=== PATIENT | male | born 1950 | race Caucasian/White ===

== ENCOUNTER 2016-12-28 22:32 | Emergency (ER) | payer BC, OTHER ==
[2016-12-28 22:44] VITALS: BP 142/92
[2016-12-28] MEDS ORDERED: Oxymetazoline 0.05% Nasal Spray 15 ML Bottle NAS ONE (23:12)
--- NOTE | 2016-12-29 00:40 | EDM.PDOC ---
ED HPI GENERAL MEDICAL PROBLEM - General Chief Complaint: ENT Problem Stated Complaint: NOSE BLEED Time Seen by Provider: 12/28/16 23:00 Source of Information: Reports: Patient History Limitations: Reports: No Limitations - History of Present Illness INITIAL COMMENTS - FREE TEXT/NARRATIVE: The patient developed a nose bleed from the right nostril at about 9 tonight. He has had nose bleeds in he past. He has a history of HTN but his blood pressure is under control. He has had no fever, cough, congestion or runny nose. He is not on any blood thinners. Onset: Sudden Duration: Hour(s): Severity: Mild Improves with: Reports: None Worsens with: Reports: None Associated Symptoms: Denies: Cough, Fever/Chills, Nausea/Vomiting, Shortness of Breath - Related Data Allergies Allergy/AdvReac Type Severity Reaction Status Date / Time penicillin Allergy Rash Verified 12/28/16 23:56 Home Meds: Home Meds Ascorbic Acid [Vitamin C] 500 mg PO DAILY 05/11/15 [History] Fluticasone/Salmeterol [Advair 100-50] 1 puff INH DAILY 05/11/15 [History] Multivitamin [Multi-Vitamin Daily] 1 tab PO DAILY 05/11/15 [History] Red Yeast Rice 2,400 mg PO DAILY 05/11/15 [History] Telmisartan/Hydrochlorothiazid [Micardis Hct 40-12.5 mg Tablet] 1 tab PO DAILY 05/11/15 [History] Triamcinolone Acetonide [Nasacort AQ Lorton] 2 sprays INH DAILY 05/11/15 [History ] Aspirin 325 mg PO DAILY #60 tablet 05/12/15 [Rx] Hydrocodone/Acetaminophen [Rowley 5-325 Tablet] 1 - 2 each PO Q6H PRN #40 tablet 05/12/15 [Rx] Past Medical History HEENT History: Reports: Impaired Vision Cardiovascular History: Reports: Hypertension Respiratory History: Reports: Asthma Musculoskeletal History: Reports: Back Pain, Chronic Neurological History: Reports: Migraines - Past Surgical History HEENT Surgical History: Reports: Naso-Sinus Surgery GI Surgical History: Reports: Appendectomy Social & Family History - Family History Family Medical History: Noncontributory - Tobacco Use Smoking Status *Q: Never Smoker Second Hand Smoke Exposure: Yes - Caffeine Use Caffeine Use: Reports: Coffee - Alcohol Use Number of Drinks Per Day: 1 - Recreational Drug Use Recreational Drug Use: No Drug Use in Last 12 Months: No ED ROS ENT - Review of Systems Review Of Systems: See Below Constitutional: Reports: No Symptoms HEENT: Reports: Nosebleed Respiratory: Reports: No Symptoms Cardiovascular: Reports: No Symptoms Endocrine: Reports: No Symptoms GI/Abdominal: Reports: No Symptoms : Reports: No Symptoms Musculoskeletal: Reports: No Symptoms Skin: Reports: No Symptoms ED EXAM, ENT - Physical Exam Exam: See Below Exam Limited By: No Limitations General Appearance: Alert, No Apparent Distress Ears: Normal External Exam Nose: Active Bleeding (Moderate to the right nostril) Mouth/Throat: Normal Inspection Head: Atraumatic, Normocephalic Neck: Normal Inspection Respiratory/Chest: No Respiratory Distress ED ENT PROCEDURES - Epistaxis Procedure Indication: epistaxis Recent anticoagulants/antiplatlets: No Uncontrolled HTN: No Recent septal/nasal surgery: No Site of bleeding: right nare Clearing of clots: patient blew nose, suction Topical Meds: other (Afrin) Ice pack to area: No Chemical cautery: silver nitrate topical Complications: No Course - Vital Signs Last Recorded V/S: Last Vital Signs Temp 98.8 F 12/28/16 22:40 Pulse 90 12/28/16 22:40 Resp 16 12/28/16 22:40 BP 142/92 H 12/28/16 22:40 Pulse Ox 96 12/28/16 22:40 - Orders/Labs/Meds Meds: Medications Discontinued Medications Generic Name Dose Route Start Last Admin Trade Name Luis Alberto PRN Reason Stop Dose Admin Oxymetazoline HCl 1 ml 12/28/16 23:12 12/28/16 23:17 Afrin Original 0.05% Nasal Lorton RUEL 12/28/16 23:13 1 ml ONETIME ONE Administration - Re-Assessments/Exams Free Text/Narrative Re-Assessment/Exam: 12/29/16 00:38 It took a few attempts but I controlled the bleeding with silver nitrate. I will have him put antibiotic ointment in each nare 2 times per day for a few days. Departure - Departure Time of Disposition: 00:40 Disposition: Home, Self-Care 01 Condition: good Clinical Impression: Epistaxis - Discharge Information Referrals: Ryan Flowers MD [Primary Care Provider] - Forms: ED Department Discharge Additional Instructions: Put antibiotic ointment in each nostril 2 to 3 times per day to keep the mucus membranes moist. Please return if you are worse. Avoid blowing your nose for 5 days.
== END 2016-12-29 00:55 | disposition home or self-care (01) ==
LOC: JD.ED 22:32
DX: R04.0 Epistaxis (principal); I10 Essential (primary) hypertension; J45.909 Unspecified asthma, uncomplicated; G43.909 Migraine, unspecified, not intractable, without status migrainosus; Z88.0 Allergy status to penicillin; Z79.899 Other long term (current) drug therapy; Z79.82 Long term (current) use of aspirin; Z90.49 Acquired absence of other specified parts of digestive tract
CPT/HCPCS: 30901; 99283; A9270; 99282-25